=== PATIENT | male | born 1970 | race Caucasian/White ===

== ENCOUNTER 2017-01-01 01:04 | Inpatient (IN) | payer MEDICARE, OTHER ==
[~2017-01-01] VITALS: Ht 177.8 cm; Wt 84.8 kg
[2017-01-01] MEDS ORDERED: CYCL7.5T25 PO (01:15)
[2017-01-01] MEDS ORDERED: OXYC-223 PO (01:16)
[2017-01-01] MEDS ORDERED: ONDANSETRON 2MG/ML, 2ML ONE (01:18)
[2017-01-01] MEDS ORDERED: ONDANSETRON 2MG/ML, 2ML IVP ONE (01:30)
[2017-01-01] MEDS ORDERED: FENTANYL PF 100 MCG/2ML IVPush PRN ×2 (01:30→02:30)
[2017-01-01] MEDS ORDERED: SODIUM CHLORIDE 0.9% 1,000ML IVBOLUS ONE ×2 (01:30→02:00)
[2017-01-01] MEDS ORDERED: SODIUM CHLORIDE FLUSH 10ML SYR IVF ONE (01:30)
[2017-01-01 01:38] LABS: ABG COLLECTION SITE RIGHT BRACHIAL; HEMOGLOBIN 10.7 g/dL (13.7-18.0)
[2017-01-01] MEDS ORDERED: CEFTRIAXONE PMX 1GM/50ML 50 ML ONE (01:48)
[2017-01-01 01:50] LABS: BLOOD UREA NITROGEN 18 mg/dL (7-18)
[2017-01-01 01:53] LABS: IS PT STATUS REG ER OR PRE ER? YES
[2017-01-01] MEDS ORDERED: FENTANYL PF 100 MCG/2ML ONE ×2 (01:58→07:40)
[2017-01-01] MEDS ORDERED: VANCOMYCIN PER PHARMACY MC ONE (02:00)
[2017-01-01] MEDS ORDERED: PIPERACILLIN/TAZO/PMX 3.375GM 50 ML IVPB ONE (02:00)
[2017-01-01] MEDS ORDERED: CEFTRIAXONE PMX 1GM/50ML 50 ML IVPB ONE (02:00)
[2017-01-01] MEDS ORDERED: PIPERACILLIN/TAZO/PMX 3.375GM 50 ML ONE (02:05)
[2017-01-01] MEDS ORDERED: SODIUM CHLORIDE 0.9% 1,000 ML IV ONE (02:11)
[2017-01-01] MEDS ORDERED: VANCOMYCIN 1,700 MG in SODIUM CHLORIDE 0.9% 250 ML IV ONE (02:30)
[2017-01-01] MEDS ORDERED: MORPHINE SULFATE 4 MG/ML, 1ML ONE ×2 (02:40→03:58)
[2017-01-01] MEDS ORDERED: OMNIPAQUE 350 MG/ML, 100ML BOTTLE ONE (02:49)
[2017-01-01] MEDS ORDERED: morphine SULFATE 10 MG/ML, 1ML IVPush ONE ×2 (03:00→04:30)
[2017-01-01] MEDS ORDERED: METO50TA82 PO (03:36)
[2017-01-01 04:20] VITALS: BP 156/95
[2017-01-01] MEDS ORDERED: BISACODYL 10 MG SUPP PR PRN (05:30)
[2017-01-01] MEDS ORDERED: ACETAMINOPHEN 325 MG TABLET PO PRN ×2 (05:30→08:00)
[2017-01-01] MEDS ORDERED: LABETALOL 5MG/ML, 20ML IV PRN ×2 (05:30→08:00)
[2017-01-01] MEDS ORDERED: MORPHINE SULFATE 4 MG/ML, 1ML IVPush PRN (05:30)
[2017-01-01] MEDS ORDERED: ONDANSETRON ODT 4 MG PO PRN (05:30)
[2017-01-01] MEDS ORDERED: GUAIFENESIN/DM 200-20MG, 10ML UDC PO PRN (05:30)
[2017-01-01] MEDS ORDERED: morphine SULFATE 10 MG/ML, 1ML IVPush PRN (05:45)
[2017-01-01] MEDS ORDERED: CYCLOBENZAPRINE MC SCH (06:00)
[2017-01-01] MEDS ORDERED: FENTANYL PF 250 MCG/5ML ONE (06:13)
[2017-01-01] MEDS ORDERED: MIDAZOLAM 1 MG/ML, 2ML ONE ×2 (06:14→08:21)
[2017-01-01] MEDS ORDERED: BUPIVACAINE/PF-EPI 0.5% 1:200K ONE ×2 (06:34→07:35)
[2017-01-01] MEDS ORDERED: hydrALAzine 20 MG/ML, 1ML IV PRN (08:00)
[2017-01-01] MEDS ORDERED: EPHEDRINE 50 MG/ML, 1ML IVPush PRN (08:00)
[2017-01-01] MEDS ORDERED: METOPROLOL 1 MG/ML, 5ML IV PRN (08:00)
[2017-01-01] MEDS ORDERED: PROMETHAZINE 25 MG/ML, 1ML IV PRN (08:00)
[2017-01-01] MEDS ORDERED: FENTANYL PF 100 MCG/2ML IV PRN (08:00)
[2017-01-01] MEDS ORDERED: ONDANSETRON 2MG/ML, 2ML IVPush PRN (08:00)
[2017-01-01] MEDS ORDERED: MEPERIDINE/PF 25MG/0.5ML IVPush PRN (08:00)
[2017-01-01] MEDS ORDERED: OXYcodone 5 MG/5 ML ORAL.SOL UDC PO PRN (08:00)
[2017-01-01] MEDS ORDERED: HYDROmorphone 1 MG/ML, 1ML ONE (08:15)
[2017-01-01] MEDS: MIDAZOLAM 1 MG/ML, 2ML IV PRN ×2 (08:24→08:34)
[2017-01-01] MEDS ORDERED: HYDROmorphone 2 MG/ML, 1ML ONE (08:36)
[2017-01-01] MEDS ORDERED: OXYcodone 5 MG/5 ML ORAL.SOL UDC ONE (08:48)
[2017-01-01] MEDS ORDERED: ACETAMINOPHEN 650 MG/20.3 ML UDC ONE (08:48)
[2017-01-01] MEDS ORDERED: ALBUTEROL SULFATE 2.5 MG/3 ML NPPB PRN ×2 (08:53→18:30)
[2017-01-01] MEDS: HYDROmorphone 1 MG/ML, 1ML IV PRN ×2 (08:56→09:21)
[2017-01-01] MEDS ORDERED: CYCLOBENZAPRINE 10 MG TABLET PO SCH (09:00)
[2017-01-01] MEDS ORDERED: CYCLOBENZAPRINE HCL 7.5 MG PO SCH (09:00)
[2017-01-01] MEDS ORDERED: FAMOTIDINE 20 MG/2 ML IV SCH (09:00)
[2017-01-01] MEDS ORDERED: ALBUTEROL SULFATE 2.5 MG/3 ML ONE (09:00)
[2017-01-01] MEDS: MORPHINE SULFATE 4 MG/ML, 1ML IVPush PRN ×5 (10:42→22:46)
[2017-01-01] MEDS: METOPROLOL TARTRATE 50 MG TABLET PO SCH ×2 (10:57→20:40)
[2017-01-01] MEDS: NS + 20MEQ KCL 1,000 ML IV SCH ×4 (11:01→23:13)
[2017-01-01] MEDS ORDERED: ROCURONIUM 10 MG/ML ONE (11:10)
[2017-01-01] MEDS ORDERED: PROPOFOL 10 MG/ML, 20ML ONE (11:10)
[2017-01-01] MEDS ORDERED: PHENYLEPHRINE 10 MG/ML ONE (11:10)
[2017-01-01] MEDS ORDERED: SUCCINYLCHOLINE 20 MG/ML, 10ML ONE (11:10)
[2017-01-01 13:50] VITALS: BP 117/78
[2017-01-01] MEDS: CYCLOBENZAPRINE 10 MG TABLET PO PRN ×2 (17:06→22:46)
[2017-01-01 19:20] VITALS: BP 142/94
[2017-01-01 22:45] VITALS: BP 159/101
[2017-01-01] MEDS: TRAZODONE 50MG TABLET PO PRN (22:46)
[2017-01-01] MEDS: FAMOTIDINE 20 MG TABLET PO SCH (22:46)
[2017-01-01 22:57] VITALS: BP 155/100
[2017-01-01 23:16] VITALS: BP 148/97
[2017-01-01] MEDS ORDERED: OXYcodone/APAP 7.5/325MG TABLET PO ONE (23:30)
[2017-01-02 00:58] VITALS: BP 151/80
[2017-01-02] MEDS: MORPHINE SULFATE 4 MG/ML, 1ML IVPush PRN ×11 (01:06→22:25)
[2017-01-02] MEDS: NS + 20MEQ KCL 1,000 ML IV SCH ×2 (05:16→10:38)
[2017-01-02 06:00] LABS: HEMOGLOBIN 8.9 g/dL (13.7-18.0)
[2017-01-02 06:24] LABS: ASPARTATE AMINO TRANSFERASE 27 U/L (15-37); BLOOD UREA NITROGEN 7 mg/dL (7-18)
[2017-01-02 07:56] VITALS: BP 102/63
[2017-01-02] MEDS: METOPROLOL TARTRATE 50 MG TABLET PO SCH ×2 (09:03→19:34)
[2017-01-02] MEDS: FAMOTIDINE 20 MG TABLET PO SCH ×2 (09:03→19:34)
[2017-01-02] MEDS: CYCLOBENZAPRINE 10 MG TABLET PO PRN ×2 (09:03→19:34)
[2017-01-02 14:00] VITALS: BP 128/85
[2017-01-02] MEDS: OXYcodone/APAP 10/325MG TABLET PO PRN ×2 (17:20→21:33)
[2017-01-02 19:32] VITALS: BP 145/77
[2017-01-02] MEDS: DOCUSATE 100 MG CAPSULE PO PRN (19:34)
[2017-01-02] MEDS: TRAZODONE 50MG TABLET PO PRN (22:25)
[2017-01-03] MEDS: MORPHINE SULFATE 4 MG/ML, 1ML IVPush PRN ×9 (00:39→23:10)
[2017-01-03] MEDS: TRAZODONE 50MG TABLET PO PRN ×2 (00:39→23:10)
[2017-01-03 00:40] VITALS: BP 132/80
[2017-01-03 01:24] VITALS: BP 126/76
[2017-01-03] MEDS: OXYcodone/APAP 10/325MG TABLET PO PRN ×4 (03:00→20:01)
[2017-01-03 05:19] LABS: HEMOGLOBIN 8.4 g/dL (13.7-18.0)
[2017-01-03 05:37] LABS: BLOOD UREA NITROGEN 6 mg/dL (7-18)
[2017-01-03 07:43] VITALS: BP 120/75
[2017-01-03] MEDS: FAMOTIDINE 20 MG TABLET PO SCH ×2 (08:07→20:01)
[2017-01-03] MEDS: METOPROLOL TARTRATE 50 MG TABLET PO SCH ×2 (08:07→20:01)
[2017-01-03] MEDS: CYCLOBENZAPRINE 10 MG TABLET PO PRN ×2 (08:07→20:01)
[2017-01-03] MEDS: DOCUSATE 100 MG CAPSULE PO PRN ×2 (08:08→20:01)
[2017-01-03] MEDS: POLYETHYLENE GLYCOL 17 GM PACKET PO PRN (10:31)
[2017-01-03 16:30] VITALS: BP 106/64
[2017-01-03] MEDS: IRON SUCROSE COMPLEX 100MG/5ML IV SCH (16:52)
[2017-01-03 20:02] VITALS: BP 133/72
[2017-01-04] MEDS: TRAZODONE 50MG TABLET PO PRN ×2 (00:37→21:38)
[2017-01-04] MEDS: OXYcodone/APAP 10/325MG TABLET PO PRN ×6 (00:38→21:38)
[2017-01-04 01:17] VITALS: BP 110/69
[2017-01-04] MEDS: MORPHINE SULFATE 4 MG/ML, 1ML IVPush PRN ×7 (02:33→23:32)
[2017-01-04 05:31] LABS: HEMOGLOBIN 7.4 g/dL (13.7-18.0)
[2017-01-04 05:32] LABS: BLOOD UREA NITROGEN 6 mg/dL (7-18)
[2017-01-04 07:45] VITALS: BP 104/60
[2017-01-04] MEDS: FAMOTIDINE 20 MG TABLET PO SCH ×2 (08:54→21:38)
[2017-01-04] MEDS: IRON SUCROSE COMPLEX 100MG/5ML IV SCH (08:54)
[2017-01-04] MEDS: METOPROLOL TARTRATE 50 MG TABLET PO SCH ×2 (08:54→21:38)
[2017-01-04] MEDS: DOCUSATE 100 MG CAPSULE PO PRN (09:02)
[2017-01-04] MEDS: POLYETHYLENE GLYCOL 17 GM PACKET PO PRN (09:02)
[2017-01-04 11:27] LABS: HEMOGLOBIN 7.6 g/dL (13.7-18.0)
[2017-01-04] MEDS ORDERED: MAGNESIUM HYDROXIDE 8%, 30ML UDC PO PRN (13:00)
[2017-01-04] MEDS ORDERED: POTASSIUM CHLORIDE 20 MEQ TAB.ER.PRT PO ONE (14:30)
[2017-01-04 14:45] VITALS: BP 101/65
[2017-01-04 17:23] LABS: HEMOGLOBIN 8.2 g/dL (13.7-18.0)
[2017-01-04 19:59] VITALS: BP 137/71
[2017-01-04] MEDS: CYCLOBENZAPRINE 10 MG TABLET PO PRN (21:38)
[2017-01-04 23:17] LABS: HEMOGLOBIN 8.6 g/dL (13.7-18.0)
[2017-01-05 01:05] VITALS: BP 123/80
[2017-01-05] MEDS: OXYcodone/APAP 10/325MG TABLET PO PRN ×5 (03:09→20:52)
[2017-01-05] MEDS: MORPHINE SULFATE 4 MG/ML, 1ML IVPush PRN ×6 (04:23→21:50)
[2017-01-05 05:51] LABS: BLOOD UREA NITROGEN 5 mg/dL (7-18)
[2017-01-05 06:20] LABS: HEMOGLOBIN 7.6 g/dL (13.7-18.0)
[2017-01-05 08:15] VITALS: BP 125/80
[2017-01-05] MEDS: IRON SUCROSE COMPLEX 100MG/5ML IV SCH (08:22)
[2017-01-05] MEDS: CYCLOBENZAPRINE 10 MG TABLET PO PRN ×2 (08:23→20:52)
[2017-01-05] MEDS: FAMOTIDINE 20 MG TABLET PO SCH ×2 (08:23→20:52)
[2017-01-05] MEDS: METOPROLOL TARTRATE 50 MG TABLET PO SCH ×2 (08:23→20:52)
[2017-01-05 13:40] VITALS: BP 120/73
[2017-01-05 19:36] VITALS: BP 141/92
[2017-01-05] MEDS: HYDROXYCHLOROQUINE 200 MG TABLET PO SCH (21:00)
[2017-01-05] MEDS: TRAZODONE 50MG TABLET PO PRN (21:50)
[2017-01-06] MEDS: MORPHINE SULFATE 4 MG/ML, 1ML IVPush PRN ×3 (01:39→14:44)
[2017-01-06 01:55] VITALS: BP 123/78
[2017-01-06] MEDS: OXYcodone/APAP 10/325MG TABLET PO PRN ×2 (03:44→09:33)
[2017-01-06 05:30] LABS: HEMOGLOBIN 8.4 g/dL (13.7-18.0)
[2017-01-06 06:40] VITALS: BP 127/70
[2017-01-06] MEDS: IRON SUCROSE COMPLEX 100MG/5ML IV SCH (07:58)
[2017-01-06] MEDS: HYDROXYCHLOROQUINE 200 MG TABLET PO SCH (07:58)
[2017-01-06] MEDS: METOPROLOL TARTRATE 50 MG TABLET PO SCH (07:58)
[2017-01-06] MEDS: FAMOTIDINE 20 MG TABLET PO SCH (07:58)
[2017-01-06] MEDS ORDERED: FERR325T10 PO (08:05)
[2017-01-06 12:45] VITALS: BP 115/68
[2017-01-06] MEDS ORDERED: PNEUMOCOCCAL 23 VACCINE IM-VACC ONE (14:00)
== END 2017-01-06 15:45 | disposition home or self-care (01) | DRG 163 ==
LOC: ED 02:08 → EDIP 02:59 → 4EST 04:31
PROVIDERS: ADMIT Internal Medicine
PROC: 0BDP0ZZ Extraction of Left Pleura, Open Approach (ICD-10-PCS; 2017-01-01)
PROC: 0WCB0ZZ Extirpation of Matter from Left Pleural Cavity, Open Approach (ICD-10-PCS; principal; 2017-01-01 06:30)
DX: S22.42XA Multiple fractures of ribs, left side, initial encounter for closed fracture (principal); S27.1XXA Traumatic hemothorax, initial encounter; J96.01 Acute respiratory failure with hypoxia; N17.9 Acute kidney failure, unspecified; R65.10 Systemic inflammatory response syndrome (SIRS) of non-infectious origin without acute organ dysfunction; D62 Acute posthemorrhagic anemia; F12.90 Cannabis use, unspecified, uncomplicated; M06.9 Rheumatoid arthritis, unspecified; R79.89 Other specified abnormal findings of blood chemistry; W19.XXXA Unspecified fall, initial encounter; W10.9XXA Fall (on) (from) unspecified stairs and steps, initial encounter; G89.29 Other chronic pain; M54.9 Dorsalgia, unspecified; Z90.49 Acquired absence of other specified parts of digestive tract; Z72.0 Tobacco use; E61.1 Iron deficiency
CPT/HCPCS: 36415; 36600; 71010; 71020; 71250; 71275; 72131; 80048; 80053; 82040; 82728; 82803; 83540; 83550; 83605; 84145; 84484; 85014; 85018; 85025; 85045; 85379; 85610; 85730; 87040; 87070; 87075; 87205; 90732; 94640; 96361; 96365; 96366; 96367; 96368; 96375; 96376; C1729; J0696; J1170; J1756; J2250; J2405; J2543; J2704; J3010; J3370; J3480; J7613; Q9967; J0330; J2270; J2370; J7030; J7050; S0028

== ENCOUNTER 2017-09-17 22:08 | Emergency (ER) | payer MEDICARE ==
[~2017-09-17] VITALS: Ht 175.3 cm; Wt 80.6 kg
[~2017-09-17 22:08] MED LIST: CYCL7.5T25 PO; FERR-36 PO; METO50TA82 PO; OXYC-306 PO
[2017-09-17] MEDS ORDERED: ALBUTEROL SULFATE 2.5 MG/3 ML ONE (23:19)
[2017-09-17 23:22] LABS: HEMATOCRIT 38.1 % (39.2-51.8); HEMOGLOBIN 13.1 g/dL (13.7-18.0); WHITE BLOOD COUNT 12.4 x10^3/uL (3.4-10)
[2017-09-17] MEDS ORDERED: ALBUTEROL SULFATE 2.5 MG/3 ML NPPB ONE (23:30)
[2017-09-17 23:34] LABS: BLOOD UREA NITROGEN 14 mg/dL (7-18)
[2017-09-17 23:44] LABS: IS PT STATUS REG ER OR PRE ER? YES
[2017-09-18 00:31] VITALS: BP 131/74
== END 2017-09-18 00:34 | disposition home or self-care (01) ==
LOC: ED 23:59
DX: R06.00 Dyspnea, unspecified (principal)
CPT/HCPCS: 36415; 71020; 80048; 82040; 84484; 85025; 85379; 93005; 94640; 99285; J7512; J7613

== ENCOUNTER 2017-12-23 03:40 | Emergency (ER) | payer MEDICARE ==
[~2017-12-23] VITALS: Ht 175.3 cm; Wt 83.0 kg
[~2017-12-23 03:40] MED LIST changes: -FERR-36 PO; +FERR-51 PO
[2017-12-23] MEDS ORDERED: ESCI10TA10 PO (04:04)
[2017-12-23] MEDS ORDERED: ALPR-475 PO (04:04)
[2017-12-23] MEDS ORDERED: CYCL-259 PO (04:04)
[2017-12-23] MEDS ORDERED: OXYC10TA6 PO (04:04)
[2017-12-23] MEDS ORDERED: HYDR200T72 PO (04:04)
[2017-12-23] MEDS ORDERED: SODIUM CHLORIDE 0.9% 1,000ML IVBOLUS ONE (04:30)
[2017-12-23] MEDS ORDERED: FAMOTIDINE 20 MG/2 ML IVP ONE (04:30)
[2017-12-23] MEDS ORDERED: SODIUM CHLORIDE FLUSH 10ML SYR IVF ONE (04:30)
[2017-12-23] MEDS ORDERED: MAALOX/HYOSCYAMINE/LIDOCAINE 45 ML BTL PO ONE (04:30)
[2017-12-23] MEDS ORDERED: ONDANSETRON 2MG/ML, 2ML IVPush ONE (04:30)
[2017-12-23] MEDS ORDERED: ONDANSETRON 2MG/ML, 2ML ONE (04:35)
[2017-12-23] MEDS ORDERED: MAALOX/HYOSCYAMINE/LIDOCAINE 45 ML BTL ONE (04:36)
[2017-12-23] MEDS ORDERED: FAMOTIDINE 20 MG/2 ML ONE (04:36)
[2017-12-23] MEDS ORDERED: MORPHINE SULFATE 4 MG/ML, 1ML ONE (05:04)
[2017-12-23] MEDS ORDERED: MORPHINE SULFATE 4 MG/ML, 1ML IVPush ONE (05:30)
[2017-12-23 06:22] VITALS: BP 133/90
== END 2017-12-23 06:26 | disposition home or self-care (01) ==
LOC: ED 06:20
DX: R19.7 Diarrhea, unspecified (principal); R11.2 Nausea with vomiting, unspecified; I10 Essential (primary) hypertension; M06.9 Rheumatoid arthritis, unspecified; Z87.891 Personal history of nicotine dependence
CPT/HCPCS: 96361; 96374; 96375; 99284; J2405; J7030; S0028

== ENCOUNTER 2017-12-23 21:41 | Emergency (ER) | payer MEDICARE ==
[~2017-12-23] VITALS: Ht 175.3 cm; Wt 85.0 kg
[~2017-12-23 21:41] MED LIST changes: +ALPR-475 PO; +CYCL-259 PO; +ESCI10TA10 PO; +HYDR200T72 PO; +OXYC10TA6 PO
[2017-12-23 22:54] LABS: BASOPHILS # (AUTO) 0.01 x10^3/uL (0-0.1); BASOPHILS % (AUTO) 0 % (0-1); EOSINOPHILS # (AUTO) 0.02 x10^3/uL (0-0.4); EOSINOPHILS % (AUTO) 0 % (1-7); LYMPHOCYTES # (AUTO) 1.05 x10^3/uL (1-3.4); LYMPHOCYTES % (AUTO) 7 % (22-44); MD NO; MEAN CORPUSCULAR HEMOGLOBIN 30.3 pg (27.5-34.5); MEAN CORPUSCULAR VOLUME 89.2 fL (81-97); MEAN PLATELET VOLUME 6.7 fL (7.4-10.4); MONOCYTES # (AUTO) 0.73 x10^3/uL (0.2-0.8); MONOCYTES % (AUTO) 5 % (2-9); NEUTROPHILS # (AUTO) 14.31 x10^3/uL (1.8-6.8); NEUTROPHILS % (AUTO) 89 % (42-75); PLATELET COUNT 378 x10^3/uL (130-400); RED BLOOD COUNT 4.85 x10^6/uL (4.38-5.82); RED CELL DISTRIBUTION WIDTH 14.1 % (9.4-14.8)
[2017-12-23] MEDS ORDERED: ONDANSETRON 2MG/ML, 2ML ONE (22:54)
[2017-12-23] MEDS ORDERED: METOCLOPRAMIDE 5 MG/ML, 2ML ONE (22:55)
[2017-12-23] MEDS ORDERED: MORPHINE SULFATE 4 MG/ML, 1ML ONE (22:55)
[2017-12-23] MEDS ORDERED: MORPHINE SULFATE 4 MG/ML, 1ML IVPush PRN (23:00)
[2017-12-23] MEDS ORDERED: ONDANSETRON 2MG/ML, 2ML IVPush ONE (23:00)
[2017-12-23] MEDS ORDERED: METOCLOPRAMIDE 5 MG/ML, 2ML IVPush ONE (23:00)
[2017-12-23] MEDS ORDERED: SODIUM CHLORIDE 0.9% 1,000ML IVBOLUS ONE (23:00)
[2017-12-23 23:05] LABS: ALANINE AMINOTRANSFERASE 30 U/L (12-78); ALBUMIN 4.3 g/dL (3.4-5.0); ANION GAP 10 mmol/L (5-15); CALCIUM 9.9 mg/dL (8.5-10.1); CHLORIDE 103 mmol/L (98-107); CREATININE 1.03 mg/dL (0.7-1.3)
[2017-12-23 23:07] LABS: ALKALINE PHOSPHATASE 85 U/L (45-117); BILIRUBIN,TOTAL 0.6 mg/dL (0.2-1.0); TOTAL PROTEIN 8.8 g/dL (6.4-8.2)
[2017-12-24 00:53] VITALS: BP 166/101
== END 2017-12-24 00:55 | disposition home or self-care (01) ==
LOC: ED 23:12
DX: G43.A1 Cyclical vomiting, in migraine, intractable (principal); E86.0 Dehydration; F11.23 Opioid dependence with withdrawal; G89.29 Other chronic pain; M54.9 Dorsalgia, unspecified; I10 Essential (primary) hypertension; M06.9 Rheumatoid arthritis, unspecified; Z79.899 Other long term (current) drug therapy
CPT/HCPCS: 36415; 80053; 83690; 85025; 96361; 96374; 96375; 99284; J2405; J2765; J7030

== ENCOUNTER → 2019-11-12 | Outpatient (CLI) | payer OTHER, MEDICARE ==
[~2019-11-12] MED LIST changes: -ALPR-475 PO; +ALPR0.5T7 PO
== END | disposition home or self-care (01) ==
LOC: RAD 07:20
PROVIDERS: ATTEND Neurological Surgery
DX: M47.12 Other spondylosis with myelopathy, cervical region (principal); M48.02 Spinal stenosis, cervical region; G95.89 Other specified diseases of spinal cord; R60.9 Edema, unspecified
CPT/HCPCS: 72040; 72141

== ENCOUNTER → 2020-06-06 | Outpatient (CLI) | payer OTHER, MEDICARE | END | disposition home or self-care (01) | LOC: RAD 10:51 | PROVIDERS: ATTEND Registered Nurse | DX: J45.40 Moderate persistent asthma, uncomplicated (principal); F12.20 Cannabis dependence, uncomplicated; Z87.891 Personal history of nicotine dependence | CPT/HCPCS: 71046 ==